=== PATIENT | male | born 1950 | race Caucasian/White ===

== ENCOUNTER 2023-10-14 13:51 | Inpatient (IN) | payer MEDICARE ==
[~2023-10-14] VITALS: Ht 175.3 cm; Wt 93.2 kg
[2023-10-14] VITALS (7 sets, daily range): BP systolic 123–149; BP diastolic 65–108
[2023-10-14] MEDS ORDERED: Diltiazem Hydrochloride 25 MG/5 ML VIAL IV ONE ×2 (14:05→14:55)
[2023-10-14 14:16] LABS: BASO # 0.1 10*3/uL (0.0-0.1); EOS # 0.1 10*3/uL (0.0-0.4); EOS % 1.3 % (1.0-4.0); HEMATOCRIT 39.7 % (42.0-52.0); LYMPH # 1.7 10*3/uL (1.3-4.4); LYMPH % 24.6 % (27.0-41.0); MEAN CELL VOLUME 95.9 fl (80.0-94.0); MEAN CORPUSCULAR HGB 31.6 pg (27.0-31.0); MEAN PLATELET VOLUME 11.1 fl (9.6-12.3); MONO # 0.8 10*3/uL (0.1-1.0); MONO % 11.3 % (3.0-9.0); NEUT # 4.3 10*3/uL (2.3-7.9); NEUT % 61.2 % (47.0-73.0); PLATELET COUNT AUTOMATED 184 10*3/uL (130-400); RED BLOOD COUNT 4.14 10*6/uL (4.50-5.90); RED CELL DISTRI WIDTH 14.3 % (0-14.5); WHITE BLOOD COUNT 7.1 10*3/uL (4.8-10.8)
[2023-10-14 14:27] LABS: ACT PARTIAL THROMBO TIME 25.1 SECONDS (20.0-32.1)
[2023-10-14] MEDS ORDERED: ALLOPURINOL100 MG PO (14:31)
[2023-10-14] MEDS ORDERED: CELECOXIB100 M1 PO (14:32)
[2023-10-14] MEDS ORDERED: LISINOPRIL10 M1 PO (14:33)
[2023-10-14] MEDS ORDERED: SIMVASTATIN40 MG PO (14:34)
[2023-10-14] MEDS ORDERED: OMEPRAZOLE MAGN20 MG PO (14:34)
[2023-10-14] MEDS ORDERED: CETIRIZINE10 MG PO (14:35)
[2023-10-14] MEDS ORDERED: METFORMIN HYDR500 MG PO (14:36)
[2023-10-14] MEDS ORDERED: B-121000 MCG PO (14:36)
[2023-10-14] MEDS ORDERED: LOPRESSOR25 MG PO (14:37)
[2023-10-14 14:38] LABS: ALKALINE PHOSPHATASE 99 U/L (46-116); BUN 16 mg/dl (9-23); CHLORIDE 102 mmol/L (98-107); SGPT/ALT 76 U/L (5-49); TOTAL PROTEIN 6.7 gm/dL (6.0-8.0)
[2023-10-14] MEDS ORDERED: Diltiazem Hydrochloride 125 ML IV SCH (15:15)
[2023-10-14] MEDS ORDERED: BISACODYL 10 MG SUPP R PRN (15:50)
[2023-10-14] MEDS ORDERED: Ondansetron Hydrochloride 4 MG/2 ML VIAL IV PRN (15:50)
[2023-10-14] MEDS ORDERED: BISACODYL 5 MG TAB PO PRN (15:50)
[2023-10-14] MEDS ORDERED: MORPHINE Sulfate 2 MG/ML SYR IV PRN (15:50)
[2023-10-14] MEDS ORDERED: Magnesium Hydroxide 30 ML UDC PO PRN (15:50)
[2023-10-14] MEDS ORDERED: ACETAMINOPHEN 325 MG TAB PO PRN (15:50)
[2023-10-14] MEDS ORDERED: Acetaminophen/Hydrocodone 5 MG/325 MG TABLET PO PRN (15:50)
[2023-10-14] MEDS ORDERED: Pantoprazole Sodium 40 MG TAB PO PRN (16:05)
[2023-10-14] MEDS ORDERED: DEXTROSE 10 % IN WATER 250 ML IV PRN (16:10)
[2023-10-14] MEDS ORDERED: METOPROLOL SUCCINATE XR 25 MG TAB PO SCH (16:10)
[2023-10-14] MEDS ORDERED: Enoxaparin Sodium 100 MG/ML SYR SC SCH (16:20)
[2023-10-14] MEDS ORDERED: MAGNESIUM SULFATE 50 ML IV ONE (16:30)
[2023-10-14] MEDS ORDERED: INSULIN LISPRO 1 UNIT/0.01 ML SQ SCH (16:30)
[2023-10-14] MEDS ORDERED: METHOCARBAMOL 750 MG TAB PO PRN (20:15)
[2023-10-14] MEDS ORDERED: IBUPROFEN 600 MG TAB PO PRN (20:15)
[2023-10-14] MEDS ORDERED: Loperamide Hydrochloride 2 MG CAP PO PRN ×2 (20:15)
[2023-10-14] MEDS ORDERED: MULTIVITAMIN CONCENTRATE (IV) 10 ML,Thiamine 100 MG,FOLIC ACID 1 MG in SODIUM CHLORIDE ... IV ONE (20:15)
[2023-10-14] MEDS ORDERED: Sennosides A and B 8.6 MG TAB PO PRN (20:15)
[2023-10-14] MEDS ORDERED: MG-AL HYDROXIDE/SIMETICONE 30 ML UDC PO PRN (20:15)
[2023-10-14] MEDS ORDERED: hydrOXYzine 50 MG CAP PO PRN (20:15)
[2023-10-14] MEDS ORDERED: Dicyclomine Hydrochloride 20 MG TAB PO PRN (20:15)
[2023-10-15] VITALS (7 sets, daily range): BP systolic 115–139; BP diastolic 71–82
[2023-10-15] MEDS ORDERED: LORazepam 1 MG TAB PO SCH
[2023-10-15] MEDS ORDERED: D3-200050 MCG PO (01:43)
[2023-10-15 05:39] LABS: ALKALINE PHOSPHATASE 82 U/L (46-116); BUN 9 mg/dl (9-23); CHLORIDE 104 mmol/L (98-107); CHOLESTEROL 144 mg/dL (<200); FREE T4 1.63 ng/dl (0.89-1.76); LDL CHOLESTEROL 43 mg/dL (9-159); POTASSIUM 3.4 mmol/L (3.4-5.1); SGPT/ALT 65 U/L (5-49); TOTAL PROTEIN 6.3 gm/dL (6.0-8.0); TRIGLYCERIDES 129 mg/dl (<150)
[2023-10-15 06:35] LABS: BASO # 0.1 10*3/uL (0.0-0.1); BASO % 0.9 % (0.0-1.0); EOS # 0.1 10*3/uL (0.0-0.4); EOS % 1.4 % (1.0-4.0); HEMATOCRIT 37.5 % (42.0-52.0); LYMPH # 2.2 10*3/uL (1.3-4.4); LYMPH % 28.1 % (27.0-41.0); MEAN CELL VOLUME 96.6 fl (80.0-94.0); MEAN CORPUSCULAR HGB 31.4 pg (27.0-31.0); MEAN CORPUSCULAR HGB CONC 32.5 g/dl (33.0-37.0); MEAN PLATELET VOLUME 12.4 fl (9.6-12.3); MONO # 0.7 10*3/uL (0.1-1.0); MONO % 9.3 % (3.0-9.0); NEUT # 4.8 10*3/uL (2.3-7.9); NEUT % 59.7 % (47.0-73.0); PLATELET COUNT AUTOMATED 187 10*3/uL (130-400); RED BLOOD COUNT 3.88 10*6/uL (4.50-5.90); RED CELL DISTRI WIDTH 14.6 % (0-14.5)
[2023-10-15 08:07] LABS: VITAMIN D, 25-HYDROXY 69.8 ng/mL (30-100)
[2023-10-15] MEDS ORDERED: OMEPRAZOLE 20 MG CAP PO SCH (09:00)
[2023-10-15] MEDS ORDERED: Enoxaparin Sodium 100 MG/ML SYR SC SCH (10:00)
[2023-10-15] MEDS ORDERED: MULTIVITAMIN 1 TAB TAB PO SCH (10:00)
[2023-10-15] MEDS ORDERED: Cetirizine Hydrochloride 10 MG TAB PO SCH (10:00)
[2023-10-15] MEDS ORDERED: CYANOCOBALAMIN 500 MCG TAB PO SCH (10:00)
[2023-10-15] MEDS ORDERED: LISINOPRIL 10 MG TAB PO SCH (10:00)
[2023-10-15] MEDS ORDERED: ALLOPURINOL 100 MG TAB PO SCH (10:00)
[2023-10-15] MEDS ORDERED: Thiamine 100 MG TAB PO SCH (10:00)
[2023-10-15] MEDS ORDERED: Cholecalciferol 2,000 UNIT TABLET (50 MCG) PO SCH (10:00)
[2023-10-15] MEDS ORDERED: FOLIC ACID 1 MG TAB PO SCH (10:00)
[2023-10-15] MEDS ORDERED: Metoprolol Tartrate 50 MG TAB PO SCH (12:45)
[2023-10-15] MEDS ORDERED: Midazolam Hydrochloride 2 MG/2 ML VIAL IV PRN (19:25)
[2023-10-15] MEDS ORDERED: APIXABAN 5 MG TAB PO SCH (22:00)
[2023-10-15] MEDS ORDERED: ATORVASTATIN CALCIUM 20 MG TAB PO SCH (22:00)
[2023-10-16] VITALS: BP 136/76
[2023-10-16] MEDS ORDERED: LORazepam 1 MG TAB PO PRN
[2023-10-16] MEDS ORDERED: LORazepam 1 MG TAB PO SCH (02:00)
[2023-10-16 06:26] LABS: BUN 14 mg/dl (9-23); CHLORIDE 106 mmol/L (98-107); POTASSIUM 3.8 mmol/L (3.4-5.1)
[2023-10-16 06:36] LABS: BASO # 0.1 10*3/uL (0.0-0.1); BASO % 0.6 % (0.0-1.0); EOS # 0.1 10*3/uL (0.0-0.4); EOS % 1.6 % (1.0-4.0); HEMATOCRIT 37.4 % (42.0-52.0); LYMPH # 1.4 10*3/uL (1.3-4.4); LYMPH % 16.2 % (27.0-41.0); MEAN CELL VOLUME 98.9 fl (80.0-94.0); MEAN CORPUSCULAR HGB 31.5 pg (27.0-31.0); MEAN CORPUSCULAR HGB CONC 31.8 g/dl (33.0-37.0); MEAN PLATELET VOLUME 11.8 fl (9.6-12.3); MONO # 0.9 10*3/uL (0.1-1.0); MONO % 10.9 % (3.0-9.0); NUCLEATED RED BLOOD CELL 0.2 % (0.0-0.0); PLATELET COUNT AUTOMATED 163 10*3/uL (130-400); RED BLOOD COUNT 3.78 10*6/uL (4.50-5.90); RED CELL DISTRI WIDTH 14.6 % (0-14.5); WHITE BLOOD COUNT 8.6 10*3/uL (4.8-10.8)
[2023-10-16 08:00] VITALS: BP 132/97
[2023-10-16 12:00] VITALS: BP 149/92
[2023-10-16 16:00] VITALS: BP 131/75
[2023-10-16] MEDS ORDERED: Metoprolol Tartrate 50 MG TAB PO ONE (16:30)
[2023-10-16 20:00] VITALS: BP 115/46
[2023-10-16] MEDS ORDERED: Metoprolol Tartrate 50 MG TAB PO SCH (22:00)
[2023-10-17] VITALS: BP 127/65
[2023-10-17 07:14] LABS: BASO # 0.1 10*3/uL (0.0-0.1); BASO % 0.5 % (0.0-1.0); EOS # 0.1 10*3/uL (0.0-0.4); EOS % 0.9 % (1.0-4.0); HEMATOCRIT 35.3 % (42.0-52.0); LYMPH # 1.8 10*3/uL (1.3-4.4); LYMPH % 18.9 % (27.0-41.0); MEAN CELL VOLUME 99.4 fl (80.0-94.0); MEAN CORPUSCULAR HGB 31.8 pg (27.0-31.0); MEAN PLATELET VOLUME 11.7 fl (9.6-12.3); MONO # 1.3 10*3/uL (0.1-1.0); MONO % 13.6 % (3.0-9.0); NEUT # 6.3 10*3/uL (2.3-7.9); NEUT % 65.6 % (47.0-73.0); NUCLEATED RED BLOOD CELL 0.2 % (0.0-0.0); PLATELET COUNT AUTOMATED 147 10*3/uL (130-400); RED BLOOD COUNT 3.55 10*6/uL (4.50-5.90); RED CELL DISTRI WIDTH 14.6 % (0-14.5); WHITE BLOOD COUNT 9.6 10*3/uL (4.8-10.8)
[2023-10-17 07:35] LABS: BUN 18 mg/dl (9-23); CHLORIDE 107 mmol/L (98-107); POTASSIUM 4.2 mmol/L (3.4-5.1)
[2023-10-17 08:00] VITALS: BP 125/71
[2023-10-17] MEDS ORDERED: LOPRESSOR100 M1 PO (11:33)
[2023-10-17] MEDS ORDERED: ELIQUIS5 M1 PO (11:33)
[2023-10-17 12:00] VITALS: BP 94/30
== END 2023-10-17 12:30 | disposition home or self-care (01) | DRG 309 ==
LOC: ED 13:51 → 4E 15:15 → EDHOLD 15:15 → 4E 21:48
PROVIDERS: Family Medicine; Nurse Practitioner Family; Student in an Organized Health Care Education/Training Program; ADMIT Internal Medicine; ATTEND Internal Medicine
DX: I48.0 Paroxysmal atrial fibrillation (principal); E44.0 Moderate protein-calorie malnutrition; I10 Essential (primary) hypertension; E78.5 Hyperlipidemia, unspecified; E11.40 Type 2 diabetes mellitus with diabetic neuropathy, unspecified; E83.42 Hypomagnesemia; D53.9 Nutritional anemia, unspecified; R74.01 Elevation of levels of liver transaminase levels; E11.42 Type 2 diabetes mellitus with diabetic polyneuropathy; E11.65 Type 2 diabetes mellitus with hyperglycemia; E78.2 Mixed hyperlipidemia; F10.10 Alcohol abuse, uncomplicated; E66.9 Obesity, unspecified; Z98.42 Cataract extraction status, left eye; Z98.41 Cataract extraction status, right eye; Z87.891 Personal history of nicotine dependence; Z82.49 Family history of ischemic heart disease and other diseases of the circulatory system; Z68.30 Body mass index [BMI] 30.0-30.9, adult